=== PATIENT | male | born 1965 | race Hispanic/Latino ===

== ENCOUNTER 2017-12-28 08:16 | Emergency (ER) | payer SELFPAY ==
[2017-12-28] MEDS ORDERED: Bupivacaine 0.5% 10 ML VIAL ONE ×2 (08:41→08:50)
[2017-12-28] MEDS ORDERED: Lidocaine 1% (PF) 30 ML VIAL ONE ×2 (08:41→08:48)
[2017-12-28] MEDS ORDERED: Adacel (T-DAP) 0.5 ML VIAL ONE (08:48)
--- NOTE | 2017-12-28 09:46 | RAD ---
LEFT HAND THREE VIEWS: HISTORY: Injury. COMPARISON: None. FINDINGS: There appear to be lacerations of the second and third digits. There is a punctate 1 x 2 mm radiopac ity within the lateral soft tissues of the distal phalanx of the middle finger. 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 Positive ulnar variance. IMPRESSION: 1. Soft tissue injuries to the second and third digits, as well as a 1 x 2 mm radiopacity along the lateral soft tissues of the distal phalanx of the middle finger. 2. The findings of the wrist can be seen with inflammatory processes, such as rheumatoid. POS: [facility]
[2017-12-28] MEDS ORDERED: Bacitracin Zinc 1 Packet ONE (09:51)
== END 2017-12-28 10:10 | disposition home or self-care (01) ==
LOC: ERS 08:16
DX: S67.22XA Crushing injury of left hand, initial encounter (principal); S61.213A Laceration without foreign body of left middle finger without damage to nail, initial encounter; F17.210 Nicotine dependence, cigarettes, uncomplicated; Z23 Encounter for immunization; W23.0XXA Caught, crushed, jammed, or pinched between moving objects, initial encounter
CPT/HCPCS: 12004; 90471; 90715; J2001; J3490